=== PATIENT | male | born 1985 | race Caucasian/White ===

== ENCOUNTER 2020-04-05 17:21 | Emergency (ER) | payer OTHER ==
[2020-04-05] MEDS ORDERED: Adacel (T-DAP) 0.5 ML SYRINGE ONE (17:44)
[2020-04-05] MEDS ORDERED: Bacitracin 1 PK ONE (17:48)
== END 2020-04-05 18:08 | disposition home or self-care (01) ==
LOC: NAV ERS 17:21
DX: S61.452A Open bite of left hand, initial encounter (principal); F17.210 Nicotine dependence, cigarettes, uncomplicated; Z79.899 Other long term (current) drug therapy; W54.0XXA Bitten by dog, initial encounter
CPT/HCPCS: 90471; 90715